=== PATIENT | female | born 1985 | race American Indian/Alaskan Native ===

== ENCOUNTER 2017-11-17 01:42 | Emergency (ER) | payer OTHER ==
[2017-11-17 03:34] LABS: Bilirubin,Urine NEG (Negative); Blood,Urine MOD (Negative); Color,Urine Colorless (Yellow); Protein,Urine <15 mg/dL mg/dL (Negative); Urobilinogen,Urine < 2.0 mg/dL (<2.0)
[2017-11-17 03:35] LABS: Hematocrit 29.2 % (30.3-42.9); Mean Corpuscular HGB Conc 27 % (30-34); Mean Corpuscular Volume 64 fl (79-97); Platelet Count 474 K/mm3 (140-440); Red Blood Count 4.59 M/mm3 (3.65-5.03); Red Cell Distribution Width 18.6 % (13.2-15.2)
[2017-11-17 03:36] LABS: Mean Corpuscular Hemoglobin 17 pg (28-32)
[2017-11-17 05:07] LABS: BUN/Creatinine Ratio 17; Blood Urea Nitrogen 12 mg/dL (7-17); Hemolysis Index 26
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
[2017-11-17 06:13] VITALS: BP 144/72
== END 2017-11-17 06:15 | disposition home or self-care (01) ==
LOC: ED 01:42
DX: E10.649 Type 1 diabetes mellitus with hypoglycemia without coma (principal)
CPT/HCPCS: 36415; 80048; 81001; 82962; 84703; 85025; 99284

== ENCOUNTER 2020-10-02 09:48 | Emergency (ER) | payer SELFPAY ==
--- NOTE | 2020-10-02 10:40 | Emergency Department Report ---
Blank Doc - Documentation Documentation: 35-year-old female that presents with generalized weakness, chest tightness and shortness of breath. Fingerstick is in high 400s. Patient stated she is insulin-dependent has been taking her medication as prescribed. Fever and tachycardia in triage. 1- This initial assessment/diagnostic orders/clinical plan/ treatment(s) is/are subject to change based on pt's health status, clinical progression and re- assessment by fellow clinical providers in the ED. Further treatment and workup at subsequent clinical provers discretion. Patient/guardians urged not to elope from ED as their condition may be serious if not clinically assessed and managed. 2-cardiac/hyperglycemic protocols
[2020-10-02 11:02] LABS: Basophils # (Auto) 0.1 K/mm3 (0.0-0.1); Basophils % (Auto) 0.9 % (0.0-1.8); Eosinophils # (Auto) 0.1 K/mm3 (0.0-0.4); Eosinophils % (Auto) 0.7 % (0.0-4.3); Lymphocytes # (Auto) 0.8 K/mm3 (1.2-5.4); Lymphocytes % (Auto) 9.8 % (13.4-35.0); Mean Corpuscular HGB Conc 29 % (30-34); Monocytes # (Auto) 0.5 K/mm3 (0.0-0.8); Monocytes % (Auto) 5.4 % (0.0-7.3); Platelet Count 455 K/mm3 (140-440); Red Blood Count 4.25 M/mm3 (3.65-5.03); Red Cell Distribution Width 18.4 % (13.2-15.2)
[2020-10-02 11:16] LABS: Alanine Aminotransferase 13 units/L (7-56); Blood Urea Nitrogen 8 mg/dL (7-17); Calcium 8.8 mg/dL (8.4-10.2); Hemolysis Index 0
[2020-10-02 11:17] LABS: BUN/Creatinine Ratio 11
[2020-10-02 11:18] LABS: INR 1.06 (0.87-1.13)
[2020-10-02 11:19] LABS: Hemoglobin 7.5 gm/dl (10.1-14.3); Mean Corpuscular Volume 61 fl (79-97); Partial Thromboplastin Time 30.3 Sec. (24.2-36.6)
--- NOTE | 2020-10-02 12:57 | XRay Report ---
CHEST 2 VIEWS INDICATION / CLINICAL INFORMATION: Chest Pain. COMPARISON: None available. FINDINGS: SUPPORT DEVICES: None. HEART / MEDIASTINUM: No significant abnormality. LUNGS / PLEURA: No significant pulmonary or pleural abnormality. No pneumothorax. ADDITIONAL FINDINGS: No significant additional findings. IMPRESSION: 1. No acute findings. Signer Name: Jeffrey Reagan MD Signed: 10/02/2020 12:53 PM Workstation Name: [id number]
[2020-10-02] MEDS ORDERED: ONDANSETRON 4 MG/2 ML INJ ONE (14:14)
[2020-10-02 15:19] VITALS: BP 132/87
[2020-10-02 15:33] LABS: Bilirubin,Urine NEG (Negative); Blood,Urine MOD (Negative); Color,Urine Colorless (Yellow); Protein,Urine <15 mg/dL mg/dL (Negative); Urobilinogen,Urine < 2.0 mg/dL (<2.0)
[2020-10-02] MEDS ORDERED: SODIUM CHLORIDE 0.9% 1000 ML IV SOLN IV ONE (16:24)
[2020-10-02] MEDS ORDERED: ACETAMINOPHEN 500 MG TAB PO ONE (16:26)
[2020-10-02] MEDS ORDERED: CEFEPIME/NS 2 GM/100 ML 2 GM/100 ML BAG IV ONE (16:37)
[2020-10-02] MEDS ORDERED: metroNIDAZOLE/NS 500 MG/100 ML 500 MG/100 ML BAG IV ONE (16:37)
--- NOTE | 2020-10-06 13:01 | Electrocardiograph Report ---
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
== END 2020-10-02 17:53 | disposition left against medical advice (07) ==
LOC: ED 09:48
DX: R07.89 Other chest pain (principal); R53.1 Weakness; R06.02 Shortness of breath; Z53.21 Procedure and treatment not carried out due to patient leaving prior to being seen by health care provider
CPT/HCPCS: 36415; 71046; 80053; 81001; 82805; 82962; 84484; 84703; 85025; 85610; 85730; 93005; J2405